=== PATIENT | female | born 1950 | race Caucasian/White ===

== ENCOUNTER 2017-09-03 12:43 | Inpatient (IN) | payer OTHER ==
[~2017-09-03] VITALS: Ht 152.4 cm; Wt 71.7 kg
[2017-09-03] MEDS ORDERED: FERRETTS325 MG (13:00)
[2017-09-03] MEDS ORDERED: LISINOPRIL20 MG (13:01)
[2017-09-03] MEDS ORDERED: IBUPROFEN600 MG (13:01)
[2017-09-03] MEDS ORDERED: PRAVASTATIN SOD40 MG (13:02)
[2017-09-05] MEDS ORDERED: PROTONIX20 MG PO (09:27)
== END 2017-09-05 09:00 | DRG 378 ==
LOC: ER 12:43 → ICU-2 18:58
PROC: 30233N1 Transfusion of Nonautologous Red Blood Cells into Peripheral Vein, Percutaneous Approach (ICD-10-PCS; 2017-09-03)
PROC: 4A033R1 Measurement of Arterial Saturation, Peripheral, Percutaneous Approach (ICD-10-PCS; 2017-09-03)
PROC: 0DJ08ZZ Inspection of Upper Intestinal Tract, Via Natural or Artificial Opening Endoscopic (ICD-10-PCS; principal; 2017-09-05)
DX: K92.2 Gastrointestinal hemorrhage, unspecified (principal); D62 Acute posthemorrhagic anemia; N17.8 Other acute kidney failure; N39.0 Urinary tract infection, site not specified; I10 Essential (primary) hypertension; E11.9 Type 2 diabetes mellitus without complications; E78.4 Other hyperlipidemia; Z79.1 Long term (current) use of non-steroidal anti-inflammatories (NSAID); K44.9 Diaphragmatic hernia without obstruction or gangrene; B96.29 Other Escherichia coli [E. coli] as the cause of diseases classified elsewhere